=== PATIENT | male | born 1985 | race Caucasian/White ===

== ENCOUNTER 2024-09-24 07:58 | Emergency (ER) | payer MEDICAID, SELFPAY ==
--- NOTE | 2024-09-24 | XR_ITS ---
Examination: MRI abdomen with intravenous contrast. MRI abdomen without intravenous contrast. Date and time of exam: September 24, 2024 1145 hours INDICATIONS: Weight loss beginning 6 months ago Technique: Multiple axial, sagittal and coronal sections of the abdomen obtained. Transverse images, TR 6020, TE 107. T1 weighted transverse images, TR 582, TE 9.5. T2-weighted sagittal images, TR 4000, TE 105. T2-weighted sagittal images, TR 4000, TE 5. Coronal images, TR 4210, TE 107. Axial and coronal images are obtained post 20 cc intravenous injection, gadolinium. Findings: No focal liver lesions Tiny gallstones No mass contiguous with the posterior margin of the pancreas, septated, measuring 7.4 x 4.4 cm The mass shows enhancement of the margins and septations within the mass No hydronephrosis Aorta normal size No ascites IMPRESSION: Septated cystic mass 7.4 x 4.4 cm contiguous with the posterior margin of the pancreas, differential would include cystic pancreatic neoplasm, pseudocyst, clinical correlation
[2024-09-24 07:59] VITALS: BMI 26.0
[2024-09-24 08:13] VITALS: BP 147/80; PULSE 75; RESP 18; TEMP 36.5; O2SAT 97
--- NOTE | 2024-09-24 08:19 | XR_ITS ---
Examination: CT abdomen and pelvis without contrast. Coronal 3-D reconstructions. Sagittal 2-D reconstructions. Date and time of exam:September 24, 2024 0826 hours Comparison 06/08/2024 INDICATIONS: 20 pound weight loss in the last 2 weeks, history mild right hydronephrosis 2 mm distal right ureterovesical junction calculus on CT abdomen pelvis study 06/08/2024 CTDI: vol (mGy): 8.04 DLP: (mGycm): 504 Technique: Axial images of the abdomen have been obtained, 3 mm slice thickness Intravenous contrast material has not been administered. Low dose protocols were performed. One or more of the following dose reduction techniques were used; automated exposure control, adjustment of the mA and/or KV according to patient size, use of iterative reconstruction technique. Findings: No focal liver lesion No gallstones Borderline splenomegaly, AP dimension 12.6 cm Hypodense mass posterior to the pancreas, 7.6 x 4.2 cm Mild left hydronephrosis although no left ureteral calculi Aorta normal size Normal appendix No bowel obstruction Transverse prostate dimension 4.1 cm No bladder mass or bladder calculi The osseous structures are intact IMPRESSION: Borderline splenomegaly Hypodense mass posterior to the pancreas, 7.6 x 4.2 cm, differential would include pancreatic pseudocyst, recommend MRI abdomen pre and postcontrast, MRCP follow-up Mild left hydronephrosis although no left ureteral calculi, consider left urinary tract infection
[2024-09-24] MEDS: ONDANSETRON ODT 4 MG TABRAP PO (08:32)
[2024-09-24] MEDS: FAMOTIDINE 20 MG TABLET PO (08:32)
[2024-09-24 09:00] LABS: Collection Type, Urine Clean Catch
[2024-09-24 09:07] LABS: Basophils % (Auto) 1 % (0-2.5); Eosinophils # (Auto) 0.1 Thou/mm3 (0.0-0.5); Eosinophils % (Auto) 1 % (0-10); Hematocrit 41.1 % (41.0-53.0); Hemoglobin 14.4 g/dL (13.5-16.0); Immature Granulocytes % (Auto) 0 % (0-0); Immature Granulocytes Auto 0.01 Thou/mm3 (0.00-0.00); Lymphocytes # (Auto) 1.3 Thou/mm3 (1.0-4.8); Lymphocytes % (Auto) 27 % (10-50); Mean Corpuscular Hemoglobin 31.6 pg (25.0-35.0); Mean Corpuscular Volume 90 fL (80-100); Monocytes # (Auto) 0.3 Thou/mm3 (0.0-0.8); Monocytes % (Auto) 7 % (0-12); Neutrophils # (Auto) 3.1 Thou/mm3 (1.8-7.7); Neutrophils % (Auto) 65 % (37-80); Nucleated Red Blood Cell % 0 /100 WBC (0); Platelet Count 232 Thou/mm3 (140-440); RDW Standard Deviation 37.9 fL (35.1-43.9); Red Blood Count 4.55 Miln/mm3 (4.50-5.90); White Blood Count 4.8 Thou/mm3 (3.8-10.6)
--- NOTE | 2024-09-24 09:08 | PD.EDRME ---
Rapid Medical Screening Exam [facility] Arrival date/time: 09/24/24 07:58 39-year-old male presents to the emergency department with abdominal pain nausea vomiting and diarrhea patient for symptoms ongoing x 2 weeks with 20 pound weight loss Chief Complaint: Nausea/Vomiting/Diarrhea Time Seen by Provider: 09/24/24 08:15 Vital signs: Vital Signs Temperature 97.7 F 09/24/24 08:13 Pulse Rate 75 09/24/24 08:13 Respiratory Rate 18 09/24/24 08:13 Blood Pressure 147/80 H 09/24/24 08:13 Pulse Oximetry (%) 97 09/24/24 08:13 Oxygen Delivery Method Room Air 09/24/24 08:13
[2024-09-24 09:28] LABS: Alanine Aminotransferase 10 U/L (10-49); Albumin, Serum 4.7 gm/dL (3.5-5.0); Alkaline Phosphatase 60 U/L (46-116); Anion Gap 8 (7-16); Aspartate Amino Transferase 17 U/L (0-34); BUN/Creatinine Ratio 11 Ratio (12-20); Bilirubin,Total 1.1 mg/dL (0.3-1.2); Blood Urea Nitrogen 12 mg/dL (9-23); Calcium 10.2 mg/dL (8.3-10.6); Calcium (Corrected) 10.2 mg/dL (8.5-10.1); Carbon Dioxide 29.5 mMol/L (20.0-31.0); Chloride 106 mMol/L (98-107); Creatinine (Component) 1.1 mg/dL (0.6-1.3); Estimated Creatinine Clearance 100.9 mL/min (>60); Globulin 2.3 gm/dL (2.3-3.5); Glucose 100 mg/dL (74-106); Lipase 37 U/L (12-53); Osmolality,Calculated 284 (275-295); Potassium 3.6 mMol/L (3.4-5.1); Sodium 143 mMol/L (136-145); eGFR > 60 See Note
[2024-09-24 09:29] LABS: Bilirubin,Urine Negative (Negative); Blood,Urine Negative (Negative); Clarity,Urine Clear (Clear/Hazy); Color,Urine Yellow (Lt Yel-Yel); Culture Indicated,Urine Not Indicated; Glucose, Urine Negative (Negative); Ketones,Urine 2+ (Negative); Leukocyte Esterase,Urine Negative (Negative); Nitrite,Urine Negative (Negative); Protein,Urine 1+ (Neg - Trace); RBC,Urine 4 /hpf (0-3); Specific Gravity,Urine 1.024 (1.001-1.035); Squamous Epithelial Cell,Urine < 1 /hpf (0-5); Urobilinogen,Urine Negative mg/dL (0.0-1.0); WBC,Urine 2 /hpf (0-5)
--- NOTE | 2024-09-24 11:08 | EDNOTE_ITS ---
ED General RME/HPI General Chief complaint: Nausea/Vomiting/Diarrhea Stated complaint: N/V/D X2 WEEKS WITH 20LB WEIGHT LOSS Time Seen by Provider: 09/24/24 08:15 Arrival date/time: 09/24/24 07:58 CC: Nausea vomiting diarrhea loss of appetite loss of weight HPI ongoing for the past 4 to 6 weeks no prior history of similar events. Patient states a similar event 6 months ago however this was related to a bronchitis that he was diagnosed and treated. Patient states he is lost approximately 20 pounds in the last 6 weeks. The nausea vomiting persists along with the diarrhea. Patient also complaining of intermittent epigastric right left upper quadrant abdominal pain. Denies fever shortness of breath difficulty breathing cough RME / HPI RME / HPI narrative: 09/24/24 07:58 39-year-old male presents to the emergency department with abdominal pain nausea vomiting and diarrhea patient for symptoms ongoing x 2 weeks with 20 pound weight loss Related Data Previous Rx's ?Medication ?Instructions ?Recorded ibuprofen 600 mg tablet 1 tab PO Q8HR PRN pain #30 tabs 07/23/16 ibuprofen 800 mg tablet 800 mg PO Q8H PRN pain #10 tabs 06/08/24 tramadol 50 mg tablet 50 mg PO Q8H PRN pain #7 tabs 06/08/24 Allergies Allergy/AdvReac Type Severity Reaction Status Date / Time No Known Allergies Allergy Verified 09/24/24 08:02 Review of Systems Review of Systems Narrative Review of Systems: GEN: No fever, no chills, no weight loss EYES: No discharge, no visual changes, no pain HEENT: No ear pain, no congestion, no sore throat PULM: No shortness of breath, no cough, no congestion CV: No chest pain, no dyspnea on exertion, no palpitations GI: +nausea, = vomiting, + diarrhea, no pain, no constipation : No frequency, no urgency, no dysuria MUSC/SKEL: No joint pain, no back pain SKIN: No rash PSYCH: No hallucinations, no depression HEME/LYMPH: No easy bleeding or bruising tendencies NEURO: No weakness, no headache Course Quality Measures VTE prophylaxis Orders Category Date Time Status MRI Screening NOW Care 09/24/24 11:[address] abdomen pelvis wo con Stat Exams 09/24/24 08:19 Completed MR abdomen wo/w con Stat Exams 09/24/24 Completed CBC Stat Lab 09/24/24 08:34 Completed Comprehensive Metabolic Panel Stat Lab 09/24/24 08:34 Completed Lipase Stat Lab 09/24/24 08:34 Completed UA, C/S IF [Urinalysis, C/S if Indicated] Stat Lab 09/24/24 08:39 Completed Famotidine [Pepcid] Med 09/24/24 08:19 Discontinued 20 mg PO X1 ONE LORazepam [Ativan Inj] Med 09/24/24 12:06 Discontinued 2 mg IVP X1 ONE Ondansetron Odt [Zofran Odt] Med 09/24/24 08:19 Discontinued 4 mg PO X1 ONE Vital Signs Vital signs: Vital Signs Temperature 97.7 F 09/24/24 08:13 Pulse Rate 75 09/24/24 08:13 Respiratory Rate 18 09/24/24 08:13 Blood Pressure 147/80 H 09/24/24 08:13 Pulse Oximetry (%) 97 09/24/24 08:13 Oxygen Delivery Method Room Air 09/24/24 08:13 [facility] Patient data External records reviewed:: [facility] previous records Clinical information provided by:: patient Social determinants that could affect healthcare access:: none Patient has the following chronic illnesses:: None How is presenting disease/condition affected by chronic disease/condition?: u neffected by Evaluation data The following diagnostics were reviewed and interpreted by me:: lab results, radiology exam(s) and EKG tracing(s) Lab and/or radiology exams considered but not ordered:: CBC shows no acute leukocytosis anemia thrombocytopenia CMP shows no acute electrolyte imbalances renal impairment transaminitis or T. bili elevation Lipase is normal Urine is unremarkable CT of the abdomen shows patient has a large mass posterior to the pancreas. MRI shows a septated cystic mass at the posterior margin of the pancreas. Interpretation Summary: Abdominal mass patient remained stable throughout his visit the emergency room this time I feel this could be an outpatient follow-up. Patient's result was discussed with the patient. Patient is in agreement with the plan Medications Medications considered but not ordered:: None Medication administrations:: Medication Administration History Discontinued Medications Famotidine (Famotidine 20 Mg Tablet) 20 mg PO X1 ONE Stop: 09/24/24 08:20 Last Admin: 09/24/24 08:32 Dose: 20 mg Documented By: Lorazepam (Lorazepam 2 Mg/Ml Vial) 2 mg IVP X1 ONE Stop: 09/24/24 12:07 Last Admin: 09/24/24 12:12 Dose: 2 mg Documented By: TM Ondansetron HCl (Ondansetron Odt 4 Mg Tabrap) 4 mg PO X1 ONE; Protocol Stop: 09/24/24 08:20 Last Admin: 09/24/24 08:32 Dose: 4 mg Documented By: LF None Consultations Consultation(s) initiated? (list below): No Diagnosis Differential Diagnosis ED Complaint MDM: Abdominal mass gastritis pancreatitis cholelithiasis Most likely diagnosis given after review of the tests above:: Abdominal mass Admission Indicated Admission indicated?: not indicated Explain why admission is indicated or not indicated:: Stable to outpatient follow-up Admission Request Was there a request for admission?: No Disposition Plan Disposition Plan: Discharge Discharge Attestation Discharge Attestation: The patient and all family members were given an opportunity to ask questions and understood the discharge instructions. Discharge instructions specifically effects, indications for sooner follow up or return to the emergency department, and the expected course of current diagnosis. Patient condition: Stable Medical Decision Making Differential Diagnosis Differential Diagnosis: Abdominal mass gastritis pancreatitis cholelithiasis Lab Data 09/24/24 08:34 09/24/24 08:34 Labs: Lab Results 09/24/24 09/24/24 Range/Units 08:34 08:39 WBC 4.8 (3.8-10.6) Thou/mm3 RBC 4.55 (4.50-5.90) Miln/mm3 Hgb 14.4 (13.5-16.0) g/dL Hct 41.1 (41.0-53.0) % MCV 90 (80-100) fL MCH 31.6 (25.0-35.0) pg MCHC 35.0 (31.0-37.0) g/dl RDW Std Deviation 37.9 (35.1-43.9) fL Plt Count 232 (140-440) Thou/mm3 Neut % (Auto) 65 (37-80) % Lymph % (Auto) 27 (10-50) % [place] % (Auto) 7 (0-12) % Eos % (Auto) 1 (0-10) % Baso % (Auto) 1 (0-2.5) % Neut # (Auto) 3.1 (1.8-7.7) Thou/mm3 Lymph # (Auto) 1.3 (1.0-4.8) Thou/mm3 [place] # (Auto) 0.3 (0.0-0.8) Thou/mm3 Eos # (Auto) 0.1 (0.0-0.5) Thou/mm3 Baso # (Auto) 0.0 (0.0-0.2) Thou/mm3 Immature Gran # (Auto) 0.01 H (0.00-0.00) Thou/mm3 Absolute Nucleated RBC 0.00 (0.00-0.00) Thou/mm3 Immature Gran % 0 (0-0) % Nucleated RBC % 0 (0) /100 WBC Sodium 143 (136-145) mMol/L Potassium 3.6 (3.4-5.1) mMol/L Chloride 106 (98-107) mMol/L Carbon Dioxide 29.5 (20.0-31.0) mMol/L Anion Gap 8 (7-16) BUN 12 (9-23) mg/dL Creatinine 1.1 (0.6-1.3) mg/dL Estim Creat Clear Calc 100.9 (>60) mL/min eGFR > 60 (60 - ) See Note BUN/Creatinine Ratio 11 L (12-20) Ratio Glucose 100 (74-106) mg/dL Calculated Osmolality 284 (275-295) Calcium 10.2 (8.3-10.6) mg/dL Corrected Calcium 10.2 H (8.5-10.1) mg/dL Total Bilirubin 1.1 (0.3-1.2) mg/dL AST 17 (0-34) U/L ALT 10 (10-49) U/L Alkaline Phosphatase 60 (46-116) U/L Total Protein 7.0 (5.7-8.2) gm/dL Albumin 4.7 (3.5-5.0) gm/dL Globulin 2.3 (2.3-3.5) gm/dL Albumin/Globulin Ratio 2.0 (1.2-2.2) Lipase 37 (12-53) U/L Ur Collection Type Clean Catch Urine Color Yellow (Lt Yel-Yel) Urine Clarity Clear (Clear/Hazy) Urine pH 6.0 (5.0-7.0) Ur Specific [place] 1.024 (1.001-1.035) Urine Protein 1+ A (Neg - Trace) Urine Glucose (UA) Negative (Negative) Urine Ketones 2+ A (Negative) Urine Blood Negative (Negative) Urine Nitrite Negative (Negative) Urine Bilirubin Negative (Negative) Urine Urobilinogen (Auto) Negative (0.0-1.0) mg/dL Ur Leukocyte Esterase Negative (Negative) Urine RBC 4 H (0-3) /hpf Urine WBC 2 (0-5) /hpf Ur Squamous Epith Cells < 1 (0-5) /hpf Urine Bacteria None (None) Ur Culture Indicated? Not Indicated Discharge Plan Plan Patient Disposition: HOME (Self Care) Patient condition on transfer: Stable Prescriptions/Referrals Prescriptions/Med Rec: No Action ibuprofen 600 MG tablet 1 tab PO Q8HR PRN (Reason: pain) Qty: 30 0RF ibuprofen 800 mg tablet 800 mg PO Q8H PRN (Reason: pain) Qty: 10 0RF tramadol 50 mg tablet 50 mg PO Q8H PRN (Reason: pain) Qty: 7 0RF Referrals: Betina Mak PA-C [Primary Care Provider] - In 1 week Problem List Clinical Impression: Abdominal mass Patient/Caregiver Discharge Instructions Other Activity Instructions:: Follow-up with your primary care provider. Education Materials: Abdominal Pain Additional Instructions: Given mass in your abdomen, please follow-up with your primary care provider for further evaluation including potential biopsy. If there is worsening of symptoms return to the emergency room for reevaluation. Print Language: Welsh Stand Alone Forms: [place] Award Info., Patient Portal Info Letter, Work/School Release KAILEY/TOMASA Supervising Physician BOB Supervising Physician: Joe Chatman ENP
[2024-09-24] MEDS: LORazepam 2 MG/ML VIAL IVP (12:12)
== END 2024-09-24 15:11 | disposition home or self-care (01) ==
PROVIDERS: Nurse Practitioner Primary Care; Emergency Provider Emergency Medicine; PCP Physician Assistant Medical
DX: K86.89 Other specified diseases of pancreas (principal)
CPT/HCPCS: 36415; 74176; 74183; 80053; 81001; 83690; 85025; 96374; 99285; A9579; J2060; Q0162; A9270

== ENCOUNTER 2024-10-25 10:20 | Day surgery (SDC) | payer MEDICAID, SELFPAY ==
[2024-10-24 07:51] VITALS: BMI 26.9
[2024-10-24 09:03] LABS: Basophils % (Auto) 1 % (0-2.5); Eosinophils # (Auto) 0.1 Thou/mm3 (0.0-0.5); Eosinophils % (Auto) 2 % (0-10); Hematocrit 42.1 % (41.0-53.0); Hemoglobin 14.7 g/dL (13.5-16.0); Immature Granulocytes % (Auto) 0 % (0-0); Lymphocytes # (Auto) 1.3 Thou/mm3 (1.0-4.8); Lymphocytes % (Auto) 26 % (10-50); Mean Corpuscular HGB Conc 34.9 g/dl (31.0-37.0); Mean Corpuscular Hemoglobin 31.6 pg (25.0-35.0); Mean Corpuscular Volume 91 fL (80-100); Monocytes # (Auto) 0.4 Thou/mm3 (0.0-0.8); Monocytes % (Auto) 8 % (0-12); Neutrophils # (Auto) 3.3 Thou/mm3 (1.8-7.7); Neutrophils % (Auto) 64 % (37-80); Nucleated Red Blood Cell % 0 /100 WBC (0); Platelet Count 232 Thou/mm3 (140-440); RDW Standard Deviation 38.2 fL (35.1-43.9); Red Blood Count 4.65 Miln/mm3 (4.50-5.90); White Blood Count 5.2 Thou/mm3 (3.8-10.6)
[2024-10-24 09:11] LABS: Alanine Aminotransferase 10 U/L (10-49); Albumin, Serum 4.8 gm/dL (3.5-5.0); Albumin/Globulin Ratio 1.9 (1.2-2.2); Alkaline Phosphatase 63 U/L (46-116); Anion Gap 7 (7-16); Aspartate Amino Transferase 11 U/L (0-34); BUN/Creatinine Ratio 16 Ratio (12-20); Blood Urea Nitrogen 14 mg/dL (9-23); Calcium 9.8 mg/dL (8.3-10.6); Calcium (Corrected) 9.8 mg/dL (8.5-10.1); Carbon Dioxide 31.6 mMol/L (20.0-31.0); Chloride 101 mMol/L (98-107); Creatinine (Component) 0.9 mg/dL (0.6-1.3); Estimated Creatinine Clearance 123.3 mL/min (>60); Globulin 2.5 gm/dL (2.3-3.5); Glucose 98 mg/dL (74-106); Osmolality,Calculated 279 (275-295); Potassium 4.3 mMol/L (3.4-5.1); Sodium 140 mMol/L (136-145); Total Protein 7.3 gm/dL (5.7-8.2); eGFR > 60 See Note
--- NOTE | 2024-10-24 14:37 | SUR.PREOP ---
Pt notified to come in at 1130 tomorrow for surgery.
[2024-10-25] VITALS (7 sets, daily range): BP systolic 115–165; BP diastolic 76–105; PULSE 63–84; RESP 14–25; TEMP 36.2–36.3; O2SAT 95–100; BMI 26.3
[2024-10-25] MEDS: RINGERS LACTATED 1000 ML 1,000 ML 20 ML IV (10:52)
--- NOTE | 2024-10-25 12:28 | PD.SUROPNT ---
Date of Procedure 10/25/24 Pre Op Diagnosis Symptomatic cholelithiasis Post Op Diagnosis Cholelithiasis with cholecystitis Procedure Laparoscopic cholecystectomy Findings Moderately distended gallbladder with small gallstones and chronic cholecystitis Procedure Description Patient was brought into the operating room in supine position. After administration of general endotracheal anesthesia abdomen was prepped and draped in standard surgical manner. A Veress needle was inserted through the umbilicus and pneumoperitoneum was obtained up to 15 mmHg. The Veress needle was then removed, a 5 mm infraumbilical incision was made and the 5mm trocar was inserted. Laparoscopic camera was placed. Under direct visualization a laparoscopic camera a 10 mm trocar was placed in subxiphoid and two 5 mm trocars placed in right upper quadrant. The gallbladder was identified and was noted to be moderately distended with small gallstones and chronic cholecystitis. It was retracted cephalad and laterally. Dissection started near the infundibulum of gallbladder where cystic duct and gallbladder junction clearly identified. The cystic duct was circumferentially dissected off the peritoneum and surrounding inflammatory tissue. The critical view of safety was clearly demonstrated. Cystic duct was then divided between 2 endoclips proximally and one distally. The cystic artery was similarly dissected and divided. The gallbladder was then from the liver bed using electrocautery. The gallbladder was then placed inside an Endo Catch and removed from the abdomen utilizing subxiphoid trocar site. The area was copiously and thoroughly washed and irrigated, all the fluid was suctioned and the suction fluid returned clear. Hemostasis achieved using electrocautery. Endoclips noted be in place and intact without any bleeding or any leakage. Hemostasis was adequate and satisfactory. The subxiphoid trocar sites fascial defect was closed with 0 Vicryl using Endo Closure device. Instruments and trocars removed, pneumoperitoneum was evacuated and the incisions closed with 4-0 Monocryl in subcuticular fashion. Instrument needle and sponge counts were all reported to be correct X2. Patient tolerated the procedure well, was extubated, breathing spontaneously and without difficulty and was transferred to postanesthesia care in stable condition. Anesthesia GETA and local Pathology / specimen Other (Gallbladder and contents) Estimated Blood Loss 10 Condition Stable Disposition PACU Surgeon Melania Richardson MD Surgical Staff Operation Date: 10/25/24 13:45 Case Staff ADJUNCT PSYCHOLOGY INSTRUCTOR: Andrew Walter RNgaming table operator: Ashley Johnson
--- NOTE | 2024-10-25 12:34 | SUR.PHASEI ---
pt received from OR in recovery bay 5. pt awake and alert, breahting unlabored on 2l nc. v/s stable. pt dressing to abd dermabond x4 cdi. report received from Dr. Walter and Curly PORRAS.
[2024-10-25] MEDS: fentaNYL CIT INJ 50 mCg/ML AMP 2ML IV ×2 (12:42→13:09)
[2024-10-25] MEDS: MORPHINE SULF INJ 10 MG/ML VIAL 4 MG IVP (12:57)
--- NOTE | 2024-10-25 13:00 | SUR.PHASEI ---
pt able to tolerate oral fluids without difficulty swallowing or nausea/vomiting.
--- NOTE | 2024-10-25 13:40 | SUR.PHASEII ---
pt awake and alert, breathing unlabored on room air. v/s stable. pt dressing to abd dermabond x4 cdi. pt able to ambulate to wheelchair with steady gait. d/c instructions given with Kelly in room, all questions answered. pt d/c via wheelchair with all belongings.
== END 2024-10-25 13:40 | disposition home or self-care (01) ==
PROVIDERS: PCP Physician Assistant Medical; Referring Provider Surgery; Visit Provider Surgery
PROC: 0FT44ZZ Resection of Gallbladder, Percutaneous Endoscopic Approach (ICD-10-PCS; CPT 47562; principal; 2024-10-25 13:30)
DX: K80.10 Calculus of gallbladder with chronic cholecystitis without obstruction (principal)
CPT/HCPCS: 47562; 36415; 80053; 85025; A4217; A4649; J0694; J1100; J2270; J2405; J2704; J3010; J3490; J7120